=== PATIENT | female | born 1960 | race African-American/Black ===

== ENCOUNTER 2022-03-14 09:01 | Inpatient (IN) | payer OTHER ==
[~2022-03-14] VITALS: Ht 167.6 cm; Wt 89.8 kg
[2022-03-14] VITALS (14 sets, daily range): BP systolic 86–107; BP diastolic 48–67
[2022-03-14] MEDS ORDERED: MORPHINE SULFATE 4 MG/ML CPJ (NOT FOR IM USE) IV ONE ×2 (09:45→11:30)
[2022-03-14 10:06] LABS: HEMATOCRIT. 36.5 % (36.0-48.0); MEAN CORPUSCULAR HEMOGLOBIN 28.9 pg (28.0-32.0); MEAN CORPUSCULAR VOLUME 88.1 fL (81.0-99.0); MEAN PLATELET VOLUME 7.9 fl (7.4-10.4); PLATELET 172 x1000/uL (130-400); RED BLOOD CELL COUNT 4.14 mill/uL (4.2-5.4); RED CELL DISTRIBUTION WIDTH 14.6 % (11.6-14.6)
[2022-03-14 10:09] LABS: CHLORIDE 104 mEq/L (98-107)
[2022-03-14 10:57] LABS: CLARITY URINE CLOUDY (CLEAR); COLOR URINE ORANGE (YELLOW); KETONES URINE TRACE (NEGATIVE); LEUKOCYTE ESTERASE URINE 1+ (NEGATIVE); NITRITE URINE POSITIVE (NEGATIVE); OCCULT BLOOD URINE NEGATIVE (NEGATIVE); PROTEIN URINE 1+ (NEGATIVE); SPECIFIC GRAVITY URINE 1.033 (1.005-1.030)
[2022-03-14 11:22] LABS: PLATELET ESTIMATE NORMAL
[2022-03-14] MEDS ORDERED: CEFTRIAXONE 2 G PREMIX 50 ML IV ONE (11:30)
[2022-03-14] MEDS ORDERED: CEFTRIAXONE 2 G in DEXTROSE 5% WATER 50 ML IV SCH (11:45)
[2022-03-14] MEDS ORDERED: ROCURONIUM BROMIDE 10MG/ML VIAL 5ML IV ONE (12:28)
[2022-03-14] MEDS ORDERED: PROPOFOL 200MG/20ML VIAL IV ONE (12:28)
[2022-03-14] MEDS ORDERED: MIDAZOLAM HCL 2 MG/2 ML VIAL ONE (12:28)
[2022-03-14] MEDS ORDERED: FENTANYL CITRATE/PF 50MCG/ML 2ML VIAL ONE (12:29)
[2022-03-14] MEDS ORDERED: SKIN ADHESIVE 0.7 GM EA TOP ONE (12:30)
[2022-03-14] MEDS ORDERED: BUPIVACAINE HCL/PF 0.5% (5MG/ML) 30ML ONE (12:30)
[2022-03-14] MEDS ORDERED: ALBUMIN HUMAN 25GM/100ML (25%) IV ONE (13:16)
[2022-03-14] MEDS ORDERED: ALBUMIN HUMAN 12.5G/250ML (5%) IV ONE ×4 (13:16→13:30)
[2022-03-14] MEDS ORDERED: NEOSTIGMINE METHYLSULFATE 1MG/ML 10 ML VIAL ONE (14:10)
[2022-03-14] MEDS ORDERED: GLYCOPYRROLATE 0.2 MG/ML 2ML VIAL ONE ×2 (14:11)
[2022-03-14] MEDS ORDERED: ALBUMIN HUMAN 12.5G/250ML (5%) IV NR ×2 (15:15→19:00)
[2022-03-14] MEDS ORDERED: SODIUM CHLORIDE 0.9% 1,000 ML IV NR (15:15)
[2022-03-14] MEDS ORDERED: SODIUM CHLORIDE 0.9% 1,000 ML IV SCH (15:15)
[2022-03-14] MEDS ORDERED: ONDANSETRON HCL 4MG/2ML INJ IV PRN ×2 (15:15)
[2022-03-14] MEDS ORDERED: NALOXONE HCL 0.4MG/ML VIAL IV PRN (15:30)
[2022-03-14] MEDS: MEPERIDINE HCL/PF 25MG/ML CPJ IV PRN ×2 (15:31→15:57)
[2022-03-14 15:44] LABS: INR 1.6; PARTIAL THROMBOPLASTIN TIME 38.9 sec (23.4-31.0); PROTHROMBIN TIME 16.6 sec (9.6-11.0)
[2022-03-14] MEDS: FENTANYL CITRATE/PF 50MCG/ML 2ML VIAL IV PRN ×3 (17:05→19:14)
[2022-03-14] MEDS ORDERED: SODIUM CHLORIDE 0.9% 1,000 ML IV ONE (18:50)
[2022-03-14] MEDS ORDERED: ALBUMIN HUMAN 25GM/500ML (5%) IV NR (19:00)
[2022-03-14 21:10] LABS: HEMATOCRIT. 25.8 % (36.0-48.0); MEAN CORPUSCULAR HEMOGLOBIN 29.5 pg (28.0-32.0); MEAN CORPUSCULAR VOLUME 95.1 fL (81.0-99.0); MEAN PLATELET VOLUME 8.5 fl (7.4-10.4); PLATELET 98 x1000/uL (130-400); RED BLOOD CELL COUNT 2.72 mill/uL (4.2-5.4); RED CELL DISTRIBUTION WIDTH 15.5 % (11.6-14.6)
[2022-03-14 21:51] LABS: PLATELET ESTIMATE DECREASED
[2022-03-14] MEDS: PIPERACILLIN/TAZOBACTAM 3.375 G in DEXTROSE 5% WATER 50 ML IV SCH (21:59)
[2022-03-14] MEDS: DEXT 5%/0.45% NACL KCL 20MEQ/L 1,000 ML IV SCH (21:59)
[2022-03-14] MEDS: MORPHINE SULFATE 2 MG/ML CPJ (NOT FOR IM USE) IV PRN (22:08)
[2022-03-15] VITALS (32 sets, daily range): BP systolic 86–124; BP diastolic 48–67
[2022-03-15] MEDS: MORPHINE SULFATE 2 MG/ML CPJ (NOT FOR IM USE) IV PRN ×5 (03:21→21:30)
[2022-03-15 06:10] LABS: HEMATOCRIT. 25.7 % (36.0-48.0); HEMOGLOBIN. 8.3 g/dL (12.0-16.0); MEAN CORPUSCULAR HEMOGLOBIN 29.7 pg (28.0-32.0); MEAN CORPUSCULAR VOLUME 91.5 fL (81.0-99.0); PLATELET 111 x1000/uL (130-400); RED CELL DISTRIBUTION WIDTH 15.1 % (11.6-14.6)
[2022-03-15] MEDS: PIPERACILLIN/TAZOBACTAM 3.375 G in DEXTROSE 5% WATER 50 ML IV SCH ×3 (06:19→21:03)
[2022-03-15] MEDS: DEXT 5%/0.45% NACL KCL 20MEQ/L 1,000 ML IV SCH ×2 (06:20→14:08)
[2022-03-15 08:20] LABS: PLATELET ESTIMATE SLIGHTLY DECREASED
[2022-03-15] MEDS ORDERED: LOVA10TA54 MT (11:25)
[2022-03-15] MEDS ORDERED: METO25TA6 PO (11:42)
[2022-03-15] MEDS ORDERED: [UNRECOGNIZED DRUG - CODE] PO (11:42)
[2022-03-15] MEDS ORDERED: MAGN400C PO (11:42)
[2022-03-15] MEDS ORDERED: APIX2.5T PO (11:42)
[2022-03-15] MEDS ORDERED: PANT20TA17 PO (11:42)
[2022-03-15] MEDS ORDERED: LEVO100T9 PO (11:42)
[2022-03-15] MEDS ORDERED: PRED2.5T4 PO (11:42)
[2022-03-15] MEDS ORDERED: MYCO180T3 PO (11:42)
[2022-03-15] MEDS ORDERED: MULT-1146 PO (11:42)
[2022-03-15] MEDS ORDERED: RISP0.2514 PO (11:42)
[2022-03-15] MEDS ORDERED: PHOS250T5 PO (11:42)
[2022-03-15] MEDS: PREDNISONE 5MG TABLET PO SCH (18:16)
[2022-03-15] MEDS: CYCLOSPORINE, MODIFIED 100MG CAPSULE PO SCH (20:52)
[2022-03-16] VITALS (30 sets, daily range): BP systolic 97–150; BP diastolic 51–94
[2022-03-16] MEDS: DEXT 5%/0.45% NACL KCL 20MEQ/L 1,000 ML IV SCH (03:33)
[2022-03-16 05:49] LABS: HEMATOCRIT. 24.8 % (36.0-48.0); HEMOGLOBIN. 8.3 g/dL (12.0-16.0); MEAN CORPUSCULAR HEMOGLOBIN 29.9 pg (28.0-32.0); MEAN CORPUSCULAR VOLUME 89.8 fL (81.0-99.0); MEAN PLATELET VOLUME 8.4 fl (7.4-10.4); PLATELET 125 x1000/uL (130-400); RED BLOOD CELL COUNT 2.77 mill/uL (4.2-5.4); RED CELL DISTRIBUTION WIDTH 15.6 % (11.6-14.6)
[2022-03-16 06:06] LABS: CHLORIDE 111 mEq/L (98-107)
[2022-03-16] MEDS: PIPERACILLIN/TAZOBACTAM 3.375 G in DEXTROSE 5% WATER 50 ML IV SCH ×3 (06:15→22:02)
[2022-03-16 06:16] LABS: PHOSPHORUS 1.6 mg/dL (2.5-4.9)
[2022-03-16 06:57] LABS: NUCLEATED RED BLOOD CELLS 1 /100 WBC; PLATELET ESTIMATE SLIGHTLY DECREASED
[2022-03-16] MEDS: DEXT 5%/0.45% NACL 1000ML 1,000 ML IV SCH ×3 (08:29→22:03)
[2022-03-16] MEDS: PREDNISONE 5MG TABLET PO SCH (08:29)
[2022-03-16] MEDS: CYCLOSPORINE, MODIFIED 100MG CAPSULE PO SCH ×2 (08:29→22:02)
[2022-03-16] MEDS: MORPHINE SULFATE 2 MG/ML CPJ (NOT FOR IM USE) IV PRN ×5 (08:31→20:23)
[2022-03-16] MEDS ORDERED: MAGNESIUM 2 G PREMIX 50 ML IV NR (11:00)
[2022-03-16] MEDS: PANTOPRAZOLE SODIUM 40 MG/VIAL IV SCH (11:50)
[2022-03-16] MEDS ORDERED: SODIUM PHOS,M-BASIC-D-BASIC 30 MM in DEXT 5% WATER 500 ML IV NR (12:00)
[2022-03-17] VITALS (14 sets, daily range): BP systolic 117–141; BP diastolic 62–92
[2022-03-17 05:25] LABS: HEMATOCRIT. 23.6 % (36.0-48.0); HEMOGLOBIN. 7.9 g/dL (12.0-16.0); MEAN CORPUSCULAR HEMOGLOBIN 29.8 pg (28.0-32.0); MEAN CORPUSCULAR VOLUME 88.9 fL (81.0-99.0); MEAN PLATELET VOLUME 8.4 fl (7.4-10.4); PLATELET 138 x1000/uL (130-400); RED BLOOD CELL COUNT 2.65 mill/uL (4.2-5.4); RED CELL DISTRIBUTION WIDTH 14.8 % (11.6-14.6)
[2022-03-17 05:36] LABS: PHOSPHORUS 3.1 mg/dL (2.5-4.9)
[2022-03-17] MEDS: PIPERACILLIN/TAZOBACTAM 3.375 G in DEXTROSE 5% WATER 50 ML IV SCH ×3 (06:42→21:36)
[2022-03-17] MEDS: PANTOPRAZOLE SODIUM 40 MG/VIAL IV SCH (09:19)
[2022-03-17] MEDS: CYCLOSPORINE, MODIFIED 100MG CAPSULE PO SCH ×2 (09:20→21:36)
[2022-03-17] MEDS: PREDNISONE 5MG TABLET PO SCH (09:20)
[2022-03-17] MEDS: MORPHINE SULFATE 2 MG/ML CPJ (NOT FOR IM USE) IV PRN ×3 (09:21→18:52)
[2022-03-17 09:56] LABS: PLATELET ESTIMATE NORMAL
[2022-03-17] MEDS: MORPHINE SULFATE 4 MG/ML CPJ (NOT FOR IM USE) IV PRN ×2 (10:41→21:36)
[2022-03-17] MEDS: DEXT 5%/0.9% NACL 1,000 ML IV SCH (10:46)
[2022-03-18 04:00] VITALS: BP 156/91
[2022-03-18] MEDS: MORPHINE SULFATE 4 MG/ML CPJ (NOT FOR IM USE) IV PRN ×3 (04:18→22:18)
[2022-03-18] MEDS: DEXT 5%/0.9% NACL 1,000 ML IV SCH (06:00)
[2022-03-18 06:39] LABS: MEAN CORPUSCULAR HEMOGLOBIN 29.4 pg (28.0-32.0); MEAN PLATELET VOLUME 7.8 fl (7.4-10.4); PLATELET 190 x1000/uL (130-400); RED BLOOD CELL COUNT 3.32 mill/uL (4.2-5.4); RED CELL DISTRIBUTION WIDTH 15.1 % (11.6-14.6)
[2022-03-18] MEDS: PIPERACILLIN/TAZOBACTAM 3.375 G in DEXTROSE 5% WATER 50 ML IV SCH ×3 (06:45→22:17)
[2022-03-18 07:06] LABS: PHOSPHORUS 1.5 mg/dL (2.5-4.9)
[2022-03-18 07:09] LABS: HEMATOCRIT. 29.2 % (36.0-48.0); HEMOGLOBIN. 9.7 g/dL (12.0-16.0)
[2022-03-18 08:00] VITALS: BP 148/89
[2022-03-18] MEDS: PANTOPRAZOLE SODIUM 40 MG/VIAL IV SCH (11:12)
[2022-03-18] MEDS: PREDNISONE 5MG TABLET PO SCH (11:13)
[2022-03-18] MEDS: CYCLOSPORINE, MODIFIED 100MG CAPSULE PO SCH ×2 (11:13→21:27)
[2022-03-18] MEDS: MORPHINE SULFATE 2 MG/ML CPJ (NOT FOR IM USE) IV PRN (11:14)
[2022-03-18 12:00] VITALS: BP 133/71
[2022-03-18 12:03] LABS: NUCLEATED RED BLOOD CELLS 1 /100 WBC; PLATELET ESTIMATE NORMAL
[2022-03-18] MEDS ORDERED: MAGNESIUM 2 G PREMIX 50 ML IV NR (13:30)
[2022-03-18] MEDS ORDERED: SODIUM PHOS,M-BASIC-D-BASIC 20 MM in DEXT 5% WATER 243.3333 ML IV NR (13:30)
[2022-03-18] MEDS ORDERED: [UNRECOGNIZED DRUG - REMARK] XX SCH (14:30)
[2022-03-18 16:00] VITALS: BP 139/97
[2022-03-18 20:00] VITALS: BP 143/93
[2022-03-19] VITALS: BP 140/90
[2022-03-19] MEDS: DEXT 5%/0.9% NACL 1,000 ML IV SCH (02:00)
[2022-03-19] MEDS: MORPHINE SULFATE 4 MG/ML CPJ (NOT FOR IM USE) IV PRN (04:15)
[2022-03-19 06:37] LABS: HEMATOCRIT. 28.2 % (36.0-48.0); HEMOGLOBIN. 9.3 g/dL (12.0-16.0); MEAN CORPUSCULAR HEMOGLOBIN 29.7 pg (28.0-32.0); MEAN CORPUSCULAR VOLUME 90.1 fL (81.0-99.0); MEAN PLATELET VOLUME 7.5 fl (7.4-10.4); PLATELET 233 x1000/uL (130-400); RED BLOOD CELL COUNT 3.13 mill/uL (4.2-5.4); RED CELL DISTRIBUTION WIDTH 15.1 % (11.6-14.6)
[2022-03-19 07:19] LABS: PHOSPHORUS 2.2 mg/dL (2.5-4.9)
[2022-03-19 08:00] VITALS: BP 145/85
[2022-03-19] MEDS ORDERED: SODIUM PHOS,M-BASIC-D-BASIC 15 MM in DEXT 5% WATER 245 ML IV ONE (10:00)
[2022-03-19] MEDS: CYCLOSPORINE, MODIFIED 100MG CAPSULE PO SCH ×2 (10:16→21:00)
[2022-03-19] MEDS: PREDNISONE 5MG TABLET PO SCH (10:16)
[2022-03-19] MEDS: PANTOPRAZOLE SODIUM 40 MG/VIAL IV SCH (10:17)
[2022-03-19 12:00] VITALS: BP 147/79
[2022-03-19] MEDS: PIPERACILLIN/TAZOBACTAM 3.375 G in DEXTROSE 5% WATER 50 ML IV SCH ×2 (13:33→22:41)
[2022-03-19 13:34] LABS: PLATELET ESTIMATE NORMAL
[2022-03-19] MEDS: MORPHINE SULFATE 2 MG/ML CPJ (NOT FOR IM USE) IV PRN (13:38)
[2022-03-19 16:00] VITALS: BP 134/75
[2022-03-19 20:00] VITALS: BP 118/57
[2022-03-20] VITALS: BP 125/65
[2022-03-20] MEDS: HYDROCODONE/ACETAMINOPHEN 5/325MG TABLET PO PRN ×3 (00:04→23:43)
[2022-03-20] MEDS: DEXT 5%/0.9% NACL 1,000 ML IV SCH (02:00)
[2022-03-20 04:00] VITALS: BP 128/68
[2022-03-20] MEDS: PIPERACILLIN/TAZOBACTAM 3.375 G in DEXTROSE 5% WATER 50 ML IV SCH ×3 (05:10→20:58)
[2022-03-20 07:23] LABS: HEMATOCRIT. 26.5 % (36.0-48.0); HEMOGLOBIN. 8.8 g/dL (12.0-16.0); MEAN CORPUSCULAR HEMOGLOBIN 29.3 pg (28.0-32.0); MEAN CORPUSCULAR VOLUME 87.8 fL (81.0-99.0); MEAN PLATELET VOLUME 7.9 fl (7.4-10.4); PLATELET 238 x1000/uL (130-400); RED BLOOD CELL COUNT 3.01 mill/uL (4.2-5.4); RED CELL DISTRIBUTION WIDTH 14.9 % (11.6-14.6)
[2022-03-20 08:00] VITALS: BP 131/90
[2022-03-20 08:15] LABS: PHOSPHORUS 2.7 mg/dL (2.5-4.9)
[2022-03-20] MEDS: PREDNISONE 5MG TABLET PO SCH (09:00)
[2022-03-20] MEDS: PANTOPRAZOLE SODIUM 40 MG/VIAL IV SCH (09:00)
[2022-03-20] MEDS: CYCLOSPORINE, MODIFIED 100MG CAPSULE PO SCH ×2 (09:00→20:58)
[2022-03-20 11:56] LABS: PLATELET ESTIMATE NORMAL
[2022-03-20 12:00] VITALS: BP 137/71
[2022-03-20 16:00] VITALS: BP 157/80
[2022-03-20] MEDS ORDERED: BISACODYL 10MG SUPP PR NR (16:45)
[2022-03-20] MEDS ORDERED: BISACODYL 10MG SUPP PR PRN (16:45)
[2022-03-20 20:00] VITALS: BP 141/78
[2022-03-21] VITALS: BP 131/72
[2022-03-21 04:00] VITALS: BP 149/72
[2022-03-21] MEDS: PIPERACILLIN/TAZOBACTAM 3.375 G in DEXTROSE 5% WATER 50 ML IV SCH ×3 (06:11→21:49)
[2022-03-21 06:44] LABS: HEMATOCRIT. 26.7 % (36.0-48.0); MEAN CORPUSCULAR HEMOGLOBIN 29.6 pg (28.0-32.0); MEAN CORPUSCULAR VOLUME 87.7 fL (81.0-99.0); MEAN PLATELET VOLUME 7.7 fl (7.4-10.4); PLATELET 287 x1000/uL (130-400); RED BLOOD CELL COUNT 3.05 mill/uL (4.2-5.4); RED CELL DISTRIBUTION WIDTH 15.2 % (11.6-14.6)
[2022-03-21 07:49] VITALS: BP 148/80
[2022-03-21] MEDS: PREDNISONE 5MG TABLET PO SCH (08:34)
[2022-03-21] MEDS: PANTOPRAZOLE SODIUM 40 MG/VIAL IV SCH (08:35)
[2022-03-21] MEDS: CYCLOSPORINE, MODIFIED 100MG CAPSULE PO SCH ×2 (08:35→21:37)
[2022-03-21 09:29] LABS: PHOSPHORUS 2.6 mg/dL (2.5-4.9)
[2022-03-21 11:39] VITALS: BP 154/84
[2022-03-21] MEDS: HYDROCODONE/ACETAMINOPHEN 5/325MG TABLET PO PRN ×2 (13:14→21:38)
[2022-03-21 15:56] VITALS: BP 146/85
[2022-03-21 20:00] VITALS: BP 136/77
[2022-03-21 21:16] LABS: PLATELET ESTIMATE NORMAL
[2022-03-22] VITALS: BP 133/72
[2022-03-22 04:00] VITALS: BP 145/80
[2022-03-22] MEDS: PIPERACILLIN/TAZOBACTAM 3.375 G in DEXTROSE 5% WATER 50 ML IV SCH ×3 (05:55→21:44)
[2022-03-22] MEDS: HYDROCODONE/ACETAMINOPHEN 5/325MG TABLET PO PRN ×3 (06:09→21:44)
[2022-03-22 07:29] LABS: HEMOGLOBIN. 8.8 g/dL (12.0-16.0); MEAN CORPUSCULAR HEMOGLOBIN 29.4 pg (28.0-32.0); MEAN CORPUSCULAR VOLUME 86.5 fL (81.0-99.0); MEAN PLATELET VOLUME 7.4 fl (7.4-10.4); PLATELET 322 x1000/uL (130-400); RED CELL DISTRIBUTION WIDTH 14.9 % (11.6-14.6)
[2022-03-22 08:00] VITALS: BP 138/70
[2022-03-22 08:01] LABS: PHOSPHORUS 2.6 mg/dL (2.5-4.9)
[2022-03-22] MEDS: PANTOPRAZOLE SODIUM 40 MG/VIAL IV SCH (09:41)
[2022-03-22] MEDS: CYCLOSPORINE, MODIFIED 100MG CAPSULE PO SCH ×2 (09:41→21:43)
[2022-03-22] MEDS: PREDNISONE 5MG TABLET PO SCH (09:41)
[2022-03-22] MEDS: SODIUM CHLORIDE 0.9% 1,000 ML IV SCH ×2 (10:00→23:20)
[2022-03-22] MEDS ORDERED: MAGNESIUM 2 G PREMIX 50 ML IV NR (11:00)
[2022-03-22 16:23] LABS: PLATELET ESTIMATE NORMAL
[2022-03-22 20:00] VITALS: BP 131/67
[2022-03-23] VITALS: BP 119/66
[2022-03-23 04:00] VITALS: BP 128/68
[2022-03-23] MEDS: PIPERACILLIN/TAZOBACTAM 3.375 G in DEXTROSE 5% WATER 50 ML IV SCH ×3 (05:53→21:07)
[2022-03-23 07:54] LABS: HEMATOCRIT. 26.8 % (36.0-48.0); HEMOGLOBIN. 8.9 g/dL (12.0-16.0); MEAN CORPUSCULAR VOLUME 87.4 fL (81.0-99.0); MEAN PLATELET VOLUME 7.4 fl (7.4-10.4); PLATELET 347 x1000/uL (130-400); RED BLOOD CELL COUNT 3.07 mill/uL (4.2-5.4)
[2022-03-23 08:00] VITALS: BP 139/79
[2022-03-23 08:18] LABS: PHOSPHORUS 2.6 mg/dL (2.5-4.9)
[2022-03-23] MEDS: PREDNISONE 5MG TABLET PO SCH (08:44)
[2022-03-23] MEDS: PANTOPRAZOLE SODIUM 40 MG/VIAL IV SCH (08:44)
[2022-03-23] MEDS: CYCLOSPORINE, MODIFIED 100MG CAPSULE PO SCH ×2 (08:44→21:07)
[2022-03-23] MEDS: DEXT 5%/0.9% NACL 1,000 ML IV SCH (09:00)
[2022-03-23] MEDS: HYDROCODONE/ACETAMINOPHEN 5/325MG TABLET PO PRN ×2 (10:05→19:00)
[2022-03-23 10:33] LABS: PLATELET ESTIMATE NORMAL
[2022-03-23 11:40] LABS: CLARITY URINE CLEAR (CLEAR); COLOR URINE YELLOW (YELLOW); KETONES URINE NEGATIVE (NEGATIVE); LEUKOCYTE ESTERASE URINE NEGATIVE (NEGATIVE); NITRITE URINE NEGATIVE (NEGATIVE); OCCULT BLOOD URINE NEGATIVE (NEGATIVE); PROTEIN URINE TRACE (NEGATIVE); SPECIFIC GRAVITY URINE 1.014 (1.005-1.030); UROBILINOGEN URINE 0.2 E.U./dL (0.2-1.0)
[2022-03-23 12:00] VITALS: BP 137/77
[2022-03-23 16:00] VITALS: BP 134/81
[2022-03-24] MEDS: HYDROCODONE/ACETAMINOPHEN 5/325MG TABLET PO PRN ×2 (00:37→08:51)
[2022-03-24] MEDS: DEXT 5%/0.9% NACL 1,000 ML IV SCH (05:16)
[2022-03-24] MEDS: PIPERACILLIN/TAZOBACTAM 3.375 G in DEXTROSE 5% WATER 50 ML IV SCH ×2 (05:16→14:21)
[2022-03-24 07:17] LABS: BASOPHILS % 0.5 % (0.0-2.0); EOSINOPHILS % 0.7 % (0.0-5.0); HEMATOCRIT. 24.4 % (36.0-48.0); HEMOGLOBIN. 8.2 g/dL (12.0-16.0); LYMPHOCYTES % 7.3 % (20.0-50.0); MEAN CORPUSCULAR VOLUME 86.5 fL (81.0-99.0); MEAN PLATELET VOLUME 7.4 fl (7.4-10.4); MONOCYTES % 6.5 % (2.0-8.0); PLATELET 347 x1000/uL (130-400); RED BLOOD CELL COUNT 2.82 mill/uL (4.2-5.4); RED CELL DISTRIBUTION WIDTH 15.1 % (11.6-14.6)
[2022-03-24 07:32] LABS: PHOSPHORUS 2.5 mg/dL (2.5-4.9)
[2022-03-24 08:00] VITALS: BP 141/85
[2022-03-24] MEDS: CYCLOSPORINE, MODIFIED 100MG CAPSULE PO SCH (08:49)
[2022-03-24] MEDS: PREDNISONE 5MG TABLET PO SCH (08:50)
[2022-03-24] MEDS: PANTOPRAZOLE SODIUM 40 MG/VIAL IV SCH (08:50)
[2022-03-24 12:00] VITALS: BP 146/81
[2022-03-24] MEDS ORDERED: LEVO-65 MT (12:42)
[2022-03-24 16:00] VITALS: BP 143/77
[2022-03-24] MEDS ORDERED: HYDROCODONE/ACETAMINOPHEN 5/325MG TABLET PO PRN (16:45)
[2022-03-24 18:09] VITALS: BP 138/72
== END 2022-03-24 18:30 | disposition home or self-care (01) | DRG 853 ==
LOC: ER 09:01 → MICUSO 11:46 → EDBEDREQTM 11:48 → EDBEDREQ 11:48 → MICUNO 19:40 → 6EST 03-17 14:30
PROVIDERS: ADMIT Internal Medicine; ATTEND Internal Medicine
PROC: 30233K1 Transfusion of Nonautologous Frozen Plasma into Peripheral Vein, Percutaneous Approach (ICD-10-PCS; 2022-03-14)
PROC: 0DTJ4ZZ Resection of Appendix, Percutaneous Endoscopic Approach (ICD-10-PCS; principal; 2022-03-22)
PROC: 0DBK4ZZ Excision of Ascending Colon, Percutaneous Endoscopic Approach (ICD-10-PCS; 2022-03-22)
DX: A41.9 Sepsis, unspecified organism (principal); K35.33 Acute appendicitis with perforation, localized peritonitis, and gangrene, with abscess; N17.0 Acute kidney failure with tubular necrosis; E44.1 Mild protein-calorie malnutrition; E87.1 Hypo-osmolality and hyponatremia; N39.0 Urinary tract infection, site not specified; K56.7 Ileus, unspecified; Z94.0 Kidney transplant status; Z20.822 Contact with and (suspected) exposure to COVID-19; E78.5 Hyperlipidemia, unspecified; D63.1 Anemia in chronic kidney disease; R65.20 Severe sepsis without septic shock; I12.9 Hypertensive chronic kidney disease with stage 1 through stage 4 chronic kidney disease, or unspecified chronic kidney disease; E83.42 Hypomagnesemia; E03.9 Hypothyroidism, unspecified; N18.30 Chronic kidney disease, stage 3 unspecified; D69.6 Thrombocytopenia, unspecified; Z82.49 Family history of ischemic heart disease and other diseases of the circulatory system
CPT/HCPCS: 36415; 71045; 74018; 74176; 80048; 80053; 81003; 83735; 84100; 84484; 85025; 86850; 86900; 86927; 87077; 87186; 88307; 93005; 93970; 94002; 97116; 97162; 97166; 97530; 97535; 99291; C1893; C9113; J0696; J2175; J2250; J2270; J2543; J2704; J2710; J3010; J3475; J3490; J7030; J7042; J7060; J7502; J7512; P9017; P9041; P9047; A4315

== ENCOUNTER 2025-01-12 18:38 | Inpatient (IN) | payer OTHER ==
[~2025-01-12] VITALS: Ht 167.6 cm; Wt 92.1 kg
[~2025-01-12 18:38] MED LIST: APIX2.5T PO; LEVO-65 MT; LEVO100T9 PO; LOVA10TA54 MT; MAGN400C PO; METO25TA6 PO; MULT-1146 PO; MYCO180T3 PO; PANT20TA17 PO; PHOS250T5 PO; PRED2.5T4 PO; RISP0.2514 PO; [UNRECOGNIZED DRUG - CODE] PO
[2025-01-12 20:22] LABS: HEMATOCRIT. 34.9 % (36.0-48.0); HEMOGLOBIN. 11.3 g/dL (12.0-16.0); MEAN PLATELET VOLUME 8.0 fl (7.4-10.4); PLATELET 142 x1000/uL (130-400); RED BLOOD CELL COUNT 3.92 mill/uL (4.2-5.4); RED CELL DISTRIBUTION WIDTH 14.3 % (11.6-14.6)
[2025-01-12 20:29] LABS: CREATININE 2.2 mg/dL (0.6-1.0)
[2025-01-12 20:30] LABS: UREA NITROGEN BLOOD 25.0 mg/dL (9-23)
[2025-01-12] MEDS: ONDANSETRON HCL 4MG/2ML INJ IV ONE (20:31)
[2025-01-12] MEDS: MORPHINE SULFATE 4 MG/ML INJ (FOR IV/IM USE) IV ONE (20:32)
[2025-01-12] MEDS: SODIUM CHLORIDE 0.9% 1,000 ML IV ONE (20:32)
[2025-01-12 20:35] LABS: INR 1.2
[2025-01-12 20:39] LABS: BAND% 10.0 % (1.0-6.0); LYMPHOCYTES % MANUAL 10.0 % (20.0-60.0); MONOCYTES % MANUAL 7.0 % (2.0-8.0); NEUTROPHILS % MANUAL 73.0 % (45.0-75.0); PLATELET ESTIMATE NORMAL
[2025-01-12 20:59] LABS: TROPONIN I HIGH SENSITIVITY 26 ng/L (3.0-34)
[2025-01-12 21:02] LABS: ASPARTATE AMINOTRANSFERASE 21 IU/L (<34); BILIRUBIN DIRECT 0.6 mg/dL (<=3.0); BILIRUBIN TOTAL 1.9 mg/dL (0.1-1.0); PROTEIN TOTAL 6.6 g/dL (6.0-8.3)
[2025-01-12] MEDS: SODIUM CHLORIDE 0.9% (SEPSIS BOLUS) IV ONE (23:56)
[2025-01-13] MEDS: CEFTRIAXONE 1GM/50ML 50 ML IV NR (00:12)
[2025-01-13 00:13] LABS: TROPONIN I HIGH SENSITIVITY 29 ng/L (3.0-34)
[2025-01-13 00:54] LABS: CLARITY URINE TURBID (CLEAR); COLOR URINE DARK YELLOW (YELLOW); GLUCOSE URINE NEGATIVE (NEGATIVE); KETONES URINE TRACE (NEGATIVE); LEUKOCYTE ESTERASE URINE 3+ (NEGATIVE); NITRITE URINE POSITIVE (NEGATIVE); OCCULT BLOOD URINE 3+ (NEGATIVE); PH URINE 6.0 (4.5-8.0); PROTEIN URINE 3+ (NEGATIVE); SPECIFIC GRAVITY URINE 1.017 (1.005-1.030); UROBILINOGEN URINE 1.0 E.U./dL (0.2-1.0)
[2025-01-13 01:25] VITALS: BP 130/71; PULSE 90; RESP 18; TEMP 36.5292
[2025-01-13] MEDS ORDERED: MORPHINE SULFATE 2 MG/ML INJ (NOT FOR IM USE) IV PRN (02:45)
[2025-01-13] MEDS ORDERED: ACETAMINOPHEN 325MG TABLET PO PRN (03:00)
[2025-01-13] MEDS: VANCOMYCIN 1.5GM/250ML 250 ML IV SCH (03:07)
[2025-01-13] MEDS: DEXT 5%/0.45% NACL 1000ML 1,000 ML IV SCH (03:07)
[2025-01-13] MEDS: ONDANSETRON HCL 4MG/2ML INJ IV PRN (03:10)
[2025-01-13] MEDS: ACETAMINOPHEN 325MG TABLET PO PRN (03:11)
[2025-01-13 04:07] LABS: SQUAMOUS EPITHELIAL CELL URINE FEW /lpf (RARE/1+)
[2025-01-13 04:08] LABS: WBC URINE 50-100 /hpf (0-2)
[2025-01-13 04:11] LABS: RBC URINE 50-100 /hpf (0-2)
[2025-01-13 04:12] LABS: BACTERIA URINE 4+
[2025-01-13] MEDS: PIPERACILLIN/TAZO 3.375G/50ML 50 ML IV SCH (04:48)
[2025-01-13] MEDS ORDERED: INFLUENZA VACCINE 05/PF 0.5 ML SYRINGE IM ONE (05:00)
[2025-01-13] MEDS: LEVOTHYROXINE SODIUM 100MCG TABLET PO SCH (06:48)
[2025-01-13] MEDS: PANTOPRAZOLE 40MG DR TABLET PO SCH (06:48)
[2025-01-13 07:52] LABS: CREATININE 2.2 mg/dL (0.6-1.0); UREA NITROGEN BLOOD 28 mg/dL (9-23)
[2025-01-13 07:54] LABS: ASPARTATE AMINOTRANSFERASE 19 IU/L (<34)
[2025-01-13 07:55] LABS: BILIRUBIN TOTAL 1.4 mg/dL (0.1-1.0); PROTEIN TOTAL 5.3 g/dL (6.0-8.3)
[2025-01-13 08:00] VITALS: BP 104/44; PULSE 86; RESP 15; TEMP 36.3; O2SAT 92
[2025-01-13 08:09] LABS: HEMATOCRIT. 29.3 % (36.0-48.0); HEMOGLOBIN. 9.5 g/dL (12.0-16.0); MEAN PLATELET VOLUME 8.2 fl (7.4-10.4); PLATELET 116 x1000/uL (130-400); RED BLOOD CELL COUNT 3.26 mill/uL (4.2-5.4); RED CELL DISTRIBUTION WIDTH 14.7 % (11.6-14.6)
[2025-01-13] MEDS: CYCLOSPORINE 100MG CAPSULE PO SCH ×2 (09:00→22:28)
[2025-01-13] MEDS ORDERED: PHOSPHORUS PO SCH (09:00)
[2025-01-13] MEDS ORDERED: MEDICATION NOT ON FORMULARY EA (Multivitamin (Multi Vitamin Daily) 1 TAB) PO SCH (09:00)
[2025-01-13] MEDS ORDERED: MEDICATION NOT ON FORMULARY EA (Prednisone 1 TAB) PO SCH (09:00)
[2025-01-13] MEDS: MYCOPHENOLATE SODIUM 180 MG TABLET.DR PO SCH (09:57)
[2025-01-13] MEDS: POTASSIUM-SODIUM PHOSPHATE POWDER PACKET PO SCH (09:57)
[2025-01-13] MEDS: MULTIVITAMINS,THER W-MINERALS TABLET PO SCH (09:58)
[2025-01-13] MEDS: PREDNISONE 5MG TABLET PO SCH (09:58)
[2025-01-13] MEDS: APIXABAN 2.5 MG TABLET PO SCH (09:58)
[2025-01-13] MEDS: METOPROLOL TARTRATE 25MG TABLET PO SCH (09:58)
[2025-01-13] MEDS: RISPERIDONE 0.25MG TABLET PO SCH (09:59)
[2025-01-13 12:00] VITALS: BP 105/49; PULSE 80; RESP 15; TEMP 36.2; O2SAT 95
[2025-01-13 16:00] VITALS: BP 138/64; PULSE 79; RESP 16; TEMP 36.1; O2SAT 100
[2025-01-13 16:21] LABS: BAND% 14.0 % (1.0-6.0); LYMPHOCYTES % MANUAL 5.0 % (20.0-60.0); METAMYELOCYTES % 2.0 % (0-0); MONOCYTES % MANUAL 4.0 % (2.0-8.0); MYELOCYTES % 2.0 % (0-0); NEUTROPHILS % MANUAL 73.0 % (45.0-75.0); PLATELET ESTIMATE SLIGHTLY DECREASED
[2025-01-13 20:00] VITALS: BP_SYST 100; BP_SYST 110; BP_SYST 114; BP_DIAS 54; BP_DIAS 58; BP_DIAS 60; PULSE 86; RESP 16; TEMP 38.3; O2SAT 98
[2025-01-13] MEDS ORDERED: APIX2.5T PO (20:34)
[2025-01-13] MEDS ORDERED: METO25TA6 PO (20:36)
[2025-01-13] MEDS ORDERED: NALOXONE HCL 0.4MG/ML VIAL IV PRN (20:45)
[2025-01-13] MEDS ORDERED: PANT40SU PO (20:46)
[2025-01-13] MEDS ORDERED: MYCOPHENOLATE SODIUM 180 MG TABLET.DR PO SCH (21:00)
[2025-01-13] MEDS: HYDROMORPHONE HCL/PF 2MG/ML INJ IV PRN (22:59)
[2025-01-14] VITALS (8 sets, daily range): BP systolic 96–149; BP diastolic 49–77; PULSE 80–92; RESP 15–19; TEMP 36.2–38.1; O2SAT 95–99
[2025-01-14 09:01] LABS: HEMATOCRIT. 29.2 % (36.0-48.0); HEMOGLOBIN. 9.6 g/dL (12.0-16.0); MEAN PLATELET VOLUME 8.5 fl (7.4-10.4); PLATELET 111 x1000/uL (130-400); RED BLOOD CELL COUNT 3.30 mill/uL (4.2-5.4); RED CELL DISTRIBUTION WIDTH 14.9 % (11.6-14.6)
[2025-01-14 09:37] LABS: PROTEIN TOTAL 5.4 g/dL (6.0-8.3)
[2025-01-14 09:38] LABS: CREATININE 2.4 mg/dL (0.6-1.0); UREA NITROGEN BLOOD 25 mg/dL (9-23)
[2025-01-14 09:40] LABS: ASPARTATE AMINOTRANSFERASE 20 IU/L (<34)
[2025-01-14 09:41] LABS: BILIRUBIN DIRECT 0.6 mg/dL (<=3.0); BILIRUBIN TOTAL 1.8 mg/dL (0.1-1.0); PHOSPHORUS 3.0 mg/dL (2.5-4.9)
[2025-01-14 09:42] LABS: T4 FREE 1.53 ng/dL (0.89-1.76)
[2025-01-14] MEDS: ALBUTEROL (0.083%) 2.5MG/3ML NEB HHN SCH (13:27)
[2025-01-14] MEDS: MAGNESIUM 2 G PREMIX 50 ML IV SCH (13:38)
[2025-01-14] MEDS: LEVOFLOXACIN 500MG TABLET PO SCH (14:55)
[2025-01-14] MEDS: GUAIFENESIN-DM 200MG-20MG/10ML UDC PO PRN (14:56)
[2025-01-14 15:04] LABS: BG BASE EXCESS -7.0 mmol/L (-2.0-3.0); BG CARBOXYHEMOGLOBIN 0.6 % (0.5-1.5); BG DEOXYHEMOGLOBIN 5.3 % (0.0-5.0); BG FRACTION INSPIRED OXYGEN 21; BG HCO3 ACT 16.6 mmol/L (21.0-28.0); BG METHEMOGLOBIN 0.3 % (0.5-1.5); BG OXYGEN SATURATION 94.7 % (94.0-98.0); BG OXYHEMOGLOBIN 93.8 % (94.0-98.0); BG PCO2 27.3 mmHg (32.0-45.0); BG PH 7.401 (7.350-7.450); BG PO2 71.6 mmHg (83.0-108.0); BG SAMPLE SITE LEFT RADIAL; BG TOTAL HEMOGLOBIN 10.7 g/dL (12.0-16.0); BG VENT MODE ROOM AIR
[2025-01-14] MEDS ORDERED: LEVO88TA2 PO (20:33)
[2025-01-14] MEDS ORDERED: LOVA10TA54 PO (20:33)
[2025-01-14] MEDS ORDERED: MAGN400T26 PO (20:40)
[2025-01-14 22:02] LABS: LYMPHOCYTES % MANUAL 7.0 % (20.0-60.0); MONOCYTES % MANUAL 6.0 % (2.0-8.0); NEUTROPHILS % MANUAL 87.0 % (45.0-75.0); PLATELET ESTIMATE DECREASED
[2025-01-15] VITALS (10 sets, daily range): BP systolic 120–157; BP diastolic 52–83; PULSE 61–90; RESP 18–20; TEMP 35.6–37.3; O2SAT 80–100
[2025-01-15] MEDS: MAGNESIUM 2 G PREMIX 50 ML IV SCH (01:30)
[2025-01-15 06:48] LABS: BASOPHILS % 0.2 % (0.0-2.0); EOSINOPHILS % 0.9 % (0.0-5.0); HEMATOCRIT. 29.0 % (36.0-48.0); HEMOGLOBIN. 9.6 g/dL (12.0-16.0); LYMPHOCYTES % 7.8 % (20.0-50.0); MEAN PLATELET VOLUME 8.6 fl (7.4-10.4); MONOCYTES % 8.4 % (2.0-8.0); NEUTROPHILS % 82.7 % (40.0-76.0); PLATELET 114 x1000/uL (130-400); RED BLOOD CELL COUNT 3.25 mill/uL (4.2-5.4); RED CELL DISTRIBUTION WIDTH 14.7 % (11.6-14.6)
[2025-01-15 07:06] LABS: CREATININE 2.0 mg/dL (0.6-1.0)
[2025-01-15 07:07] LABS: UREA NITROGEN BLOOD 18 mg/dL (9-23)
[2025-01-15 07:09] LABS: PHOSPHORUS 3.3 mg/dL (2.5-4.9)
[2025-01-16] VITALS (11 sets, daily range): BP systolic 120–164; BP diastolic 54–78; PULSE 71–118; RESP 16–19; TEMP 36.1–37.1; O2SAT 95–100
[2025-01-16 08:10] LABS: HEMATOCRIT. 29.5 % (36.0-48.0); HEMOGLOBIN. 9.7 g/dL (12.0-16.0); MEAN PLATELET VOLUME 8.2 fl (7.4-10.4); PLATELET 141 x1000/uL (130-400); RED BLOOD CELL COUNT 3.29 mill/uL (4.2-5.4); RED CELL DISTRIBUTION WIDTH 14.6 % (11.6-14.6)
[2025-01-16 08:19] LABS: CREATININE 1.9 mg/dL (0.6-1.0)
[2025-01-16 08:20] LABS: UREA NITROGEN BLOOD 13 mg/dL (9-23)
[2025-01-16 08:21] LABS: ASPARTATE AMINOTRANSFERASE 15 IU/L (<34)
[2025-01-16 08:22] LABS: BILIRUBIN TOTAL 0.9 mg/dL (0.1-1.0); PHOSPHORUS 2.7 mg/dL (2.5-4.9); PROTEIN TOTAL 5.6 g/dL (6.0-8.3)
[2025-01-16] MEDS: BENZONATATE 100MG CAPSULE PO PRN (16:28)
[2025-01-16 17:35] LABS: BAND% 6.0 % (1.0-6.0); EOSINOPHILS % MANUAL 1.0 % (0.0-5.0); LYMPHOCYTES % MANUAL 12.0 % (20.0-60.0); MONOCYTES % MANUAL 9.0 % (2.0-8.0); NEUTROPHILS % MANUAL 72.0 % (45.0-75.0); PLATELET ESTIMATE NORMAL
[2025-01-17] VITALS (7 sets, daily range): BP systolic 123–163; BP diastolic 58–88; PULSE 75–101; RESP 15–24; TEMP 36.2–37; O2SAT 94–98
[2025-01-17 06:20] LABS: HEMATOCRIT. 28.7 % (36.0-48.0); HEMOGLOBIN. 9.5 g/dL (12.0-16.0); MEAN PLATELET VOLUME 8.2 fl (7.4-10.4); PLATELET 150 x1000/uL (130-400); RED BLOOD CELL COUNT 3.24 mill/uL (4.2-5.4); RED CELL DISTRIBUTION WIDTH 14.2 % (11.6-14.6)
[2025-01-17 06:32] LABS: CREATININE 1.8 mg/dL (0.6-1.0); UREA NITROGEN BLOOD 11 mg/dL (9-23)
[2025-01-17 06:34] LABS: PHOSPHORUS 2.3 mg/dL (2.5-4.9)
[2025-01-17] MEDS: MAGNESIUM OXIDE 400MG TABLET PO SCH (08:49)
[2025-01-17] MEDS ORDERED: BENZ100C86 PO (13:09)
[2025-01-17 15:33] LABS: BAND% 2.0 % (1.0-6.0); LYMPHOCYTES % MANUAL 23.0 % (20.0-60.0); METAMYELOCYTES % 3.0 % (0-0); MONOCYTES % MANUAL 13.0 % (2.0-8.0); NEUTROPHILS % MANUAL 59.0 % (45.0-75.0); PLATELET ESTIMATE NORMAL; PLATELET SATELLITISM FEW
== END 2025-01-17 16:44 | disposition home or self-care (01) | DRG 871 ==
LOC: ER 18:38 → 5WST 01-13 00:09 → EDBEDREQTM 01-13 00:36 → EDBEDREQ 01-13 00:36 → EDBEDREQDT 01-13 00:36 → ENRESERV 01-13 00:51 → 5WST 01-16 21:45
PROVIDERS: ADMIT Internal Medicine; ATTEND Internal Medicine
DX: A41.51 Sepsis due to Escherichia coli [E. coli] (principal); N17.0 Acute kidney failure with tubular necrosis; N39.0 Urinary tract infection, site not specified; E87.20 Acidosis, unspecified; T86.12 Kidney transplant failure; R19.7 Diarrhea, unspecified; E78.5 Hyperlipidemia, unspecified; E03.9 Hypothyroidism, unspecified; D25.9 Leiomyoma of uterus, unspecified; D64.9 Anemia, unspecified; D69.6 Thrombocytopenia, unspecified; R65.20 Severe sepsis without septic shock; N18.30 Chronic kidney disease, stage 3 unspecified; I12.9 Hypertensive chronic kidney disease with stage 1 through stage 4 chronic kidney disease, or unspecified chronic kidney disease; Y92.89 Other specified places as the place of occurrence of the external cause; Y83.0 Surgical operation with transplant of whole organ as the cause of abnormal reaction of the patient, or of later complication, without mention of misadventure at the time of the procedure; Z51.5 Encounter for palliative care; Z79.01 Long term (current) use of anticoagulants; Z79.899 Other long term (current) drug therapy; Z82.49 Family history of ischemic heart disease and other diseases of the circulatory system; Z86.718 Personal history of other venous thrombosis and embolism
CPT/HCPCS: 36415; 36600; 71045; 71250; 74176; 80048; 80053; 80076; 80202; 81003; 82375; 82550; 82805; 83605; 83735; 83880; 84100; 84145; 84439; 84443; 84484; 85025; 87077; 87186; 93005; 94070; 94640; 94760; 99291; A4606; J0696; J1171; J2270; J2405; J2543; J3373; J3475; J7030; J7502; J7512; J7517